=== PATIENT | male | born 1950 | race Caucasian/White ===

== ENCOUNTER → 2016-08-18 | Outpatient (CLI) | payer OTHER ==
[~2016-08-18] MED LIST: DULO60CA44 PO; HYDR-5688 PO; HYDR25TA4 PO; LISI40TA PO; LORA-741 PO; PANT40TA PO; RANI150T3 PO
[2016-08-18 18:09] LABS: ALT/SGPT 36 U/L (12-78); AST/SGOT 20 U/L (15-37); BLOOD UREA NITROGEN 18 mg/dl (7-18); BUN/CREATININE RATIO 16.7 (10-20); CALCIUM 8.5 mg/dl (8.5-10.1); CARBON DIOXIDE 31 mmol/L (21-32); CHLORIDE 99 mmol/L (98-107); GLUCOSE 128 mg/dl (70-99); POTASSIUM 3.7 mmol/L (3.5-5.1); SODIUM 138 mmol/L (136-145)
== END | disposition home or self-care (01) ==
LOC: C.LABMFLN 10:59
PROVIDERS: ATTEND Family Medicine
DX: I10 Essential (primary) hypertension (principal); E78.00 Pure hypercholesterolemia, unspecified; G62.9 Polyneuropathy, unspecified

== ENCOUNTER → 2016-08-25 | Outpatient (CLI) | payer OTHER ==
[2016-08-25 13:51] LABS: ESTIMATED AVERAGE GLUCOSE 120 mg/dl; HA1C FLAG Normal (Normal)
== END | disposition home or self-care (01) ==
LOC: C.LABMFLN 11:33
PROVIDERS: ATTEND Family Medicine
DX: R73.09 Other abnormal glucose (principal)

== ENCOUNTER → 2016-09-04 | Outpatient (CLI) | payer OTHER ==
[2016-09-04 18:16] LABS: BASO % 0.9 %; BASO ABS # 0.07 K/uL (0-0.2); COMPLETE YES; HEMATOCRIT 44.2 % (42-52); IG% 0.4 %; LYMPH % 46.3 %; LYMPH ABS # 3.63 K/uL (1.2-3.4); MEAN CELL VOLUME 92.5 fL (80-100); MEAN CORPUSCULAR HEMOGLOBIN 31.8 pg (25-34); MEAN CORPUSCULAR HGB CONC 34.4 g/dl (32-36); MEAN PLATELET VOLUME 9.9 fL (7.4-10.4); MONO % 7.8 %; NEUT % 42.6 %; PLATELET COUNT 226 K/uL (130-400); RED BLOOD COUNT 4.78 M/uL (4.7-6.1); WHITE BLOOD COUNT 7.84 K/uL (4.8-10.8)
== END | disposition home or self-care (01) ==
LOC: C.LABMFLN 14:51
PROVIDERS: ATTEND Family Medicine
DX: R06.09 Other forms of dyspnea (principal); R07.89 Other chest pain

== ENCOUNTER → 2016-09-21 | Outpatient (CLI) | payer OTHER ==
[~2016-09-21] MED LIST changes: +PERFLUTREN LIPID MICROSPHERE (DEFINITY) IV ONE
--- NOTE | 2016-09-21 10:58 | DIAGNOSTIC IMAGING REPORT ---
CHEST 2 VIEWS ROUTINE HISTORY: R06.09 Dyspnea on [id number] Chest [id number] COMPARISON: Chest 09/22/2014. FINDINGS: The lungs are clear. Cardiac silhouette is normal in size. No pleural effusions. No pneumothorax. Cervical spinal fusion hardware. IMPRESSION: No acute process. Electronically signed by: Calvin Alexander M.D. 09/21/2016 10:56 AM Dictated Date/Time: 09/21/2016 10:56 AM
--- NOTE | 2016-09-21 11:00 | DIAGNOSTIC IMAGING REPORT ---
L-SPINE MIN 4 VIEWS ROUTINE CLINICAL HISTORY: Chronic back pain COMPARISON STUDY: No previous studies for comparison. FINDINGS: No acute fractures or subluxations are visualized. There are moderately advanced degenerative changes with disc space narrowing at the L4-5 and L5-S1 levels. IMPRESSION: Moderately advanced degenerative changes the L4-5 and L5-S1 levels. No acute fractures are visualized. Electronically signed by: Chino Ortega M.D. 09/21/2016 10:59 AM Dictated Date/Time: 09/21/2016 10:58 AM
--- NOTE | 2016-09-21 11:47 | DIAGNOSTIC IMAGING REPORT ---
MRI THORACIC SPINE WITHOUT CLINICAL HISTORY: Chronic back pain PRIOR STUDIES: None TECHNIQUE: MR scanning of the thoracic spine was performed using multiple pulse sequences. No gadolinium was administered. FINDINGS: There are no suspicious areas of marrow replacement. There is a small right paracentral disc protrusion at the T5-6 level. There is no significant spinal stenosis. No cord lesions are visualized. IMPRESSION: 1. Small right paracentral disc protrusion at the T5-6 level 2. No significant spinal stenosis. 3. No cord lesions identified. 4. No evidence of suspicious marrow replacement Electronically signed by: Chino Ortega M.D. 09/21/2016 11:46 AM Dictated Date/Time: 09/21/2016 11:40 AM
--- NOTE | 2016-09-21 19:15 | EXERCISE STRESS ECHO ---
*NOTICE TO RECEIVING [employer] This information is strictly Confidential and protected under [place] law. [place] law prohibits you from making any further disclosure of this information unless further disclosure is expressly permitted by the written consent of the person to whom it pertains or is authorized by law. A general authorization for the release of medical or other information is not sufficient for this purpose. Hospital accepts no responsibility if the information is made available to any other person, INCLUDING THE PATIENT. Interpretation Summary * Name: DEBBIE BAINS Study Date: 09/21/2016 11:44 AM BP: 122/77 mmHg * Patient Location: .[facility] HR: 90 * : 1950 (M/d/yyyy) Gender: Male Height: 71 in * Age: 66 yrs Ethnicity: [place] Weight: 249 lb * Ordering Physician: Tommy Vizcarra * Referring Physician: Tommy Vizcarra * Performed By: Leti Worley RDCS * * Reason For Study: Chest discomfort, dyspnea * BSA: 2.3 m2 * -- Conclusions -- * Left ventricular systolic function is normal. * Grade I diastolic dysfunction, (abnormal relaxation pattern). * Normal maximal exercise echocardiogram without evidence of inducible ischemia Procedure Details * ECHOEX, CPT #54658 * ECHO DOPPLER, CPT #[id number] * ECHO COLOR FLOW, CPT #70308 * A contrast injection of Definity was performed to improve assessment of LV function. * Contrast was injected into an intravenous site in the right arm. * One vial of Definity ultrasound contrast was diluted in normal saline to a total volume of 10 ml. A total of '4' ml of solution was administered during imaging. * Lot # [id number] of Definity utilized for procedure. * Expiration date AUG 29. * The attending nurse who injected the contrast agent was Perla Gregory RN. Left Ventricle * The left ventricle is normal in size. * There is normal left ventricular wall thickness. * Ejection Fraction = 65-70%. * Left ventricular systolic function is normal. * Grade I diastolic dysfunction, (abnormal relaxation pattern). * The left ventricular wall motion is normal. Right Ventricle * The right ventricle is normal in size and function. Atria * The left atrial size is normal. * Right atrial size is normal. Mitral Valve * The mitral valve is grossly normal. * Significant mitral regurgitation is absent. Tricuspid Valve * The tricuspid valve is not well visualized, but is grossly normal. * Significant tricuspid regurgitation is absent. Aortic Valve * The aortic valve is normal in structure and function. * No hemodynamically significant valvular aortic stenosis. * There is no significant aortic regurgitation. Pericardium * There is no pericardial effusion. Stress Parameters * Normal baseline electrocardiogram. * Stress ECG: No ST changes. No arrhythmias. * The stress portion of this study was personally supervised by the undersigned interpreting physician. * Rest heart rate was '90' BPM. * Rest blood pressure was '122/77' * Maximum heart rate achieved was 173 bpm. * Maximum heart rate was 110 % of maximum age-predicted heart rate. * Maximum blood pressure was '160/74' * Total exercise time was '6:01' * Maximum exercise MET level achieved was '7.00' METS * Maximum treadmill speed was '2.50' miles per hour. * Maximum treadmill elevation was '12.00'% grade. * Exercise was terminated due to 'achieving target heart rate' Left Ventricular Findings with Stress * No ischemic changes during stress test. Normal baseline echo with normal augmentation and no inducible wall motion abnormalities No symptoms Light treadmill score 6 (low risk) MMode 2D Measurements and Calculations IVSd 1.1 cm LVIDd 4.2 cm LVIDs 2.7 cm LVPWd 1.3 cm IVS/LVPW 0.88 FS 35.4 % EDV(Teich) 76.6 ml ESV(Teich) 26.7 ml EF(Teich) 65.2 % EDV(cubed) 71.8 ml ESV(cubed) 19.4 ml EF(cubed) 73.0 % LV mass(C)d 171.2 grams LV mass(C)dI 73.9 grams/m\S\2 SV(Teich) 50.0 ml SI(Teich) 21.6 ml/m\S\2 SV(cubed) 52.4 ml SI(cubed) 22.6 ml/m\S\2 Ao root diam 3.8 cm Ao root area 11.1 cm\S\2 ACS 2.2 cm LA dimension 3.0 cm asc Aorta Diam 3.2 cm LA/Ao 0.81 LVOT diam 2.2 cm LVOT area 3.8 cm\S\2 LVAd ap4 28.7 cm\S\2 LVLd ap4 8.7 cm EDV(MOD-sp4) 80.9 ml EDV(sp4-el) 80.5 ml LVAs ap4 14.5 cm\S\2 LVLs ap4 6.6 cm ESV(MOD-sp4) 26.6 ml ESV(sp4-el) 27.0 ml EF(MOD-sp4) 67.1 % EF(sp4-el) 66.4 % LVAd ap2 27.4 cm\S\2 LVLd ap2 8.3 cm EDV(MOD-sp2) 75.0 ml EDV(sp2-el) 76.9 ml LVAs ap2 14.4 cm\S\2 LVLs ap2 7.1 cm ESV(MOD-sp2) 27.0 ml ESV(sp2-el) 24.8 ml EF(MOD-sp2) 64.0 % EF(sp2-el) 67.7 % LVLd %diff -5.38 % EDV(MOD-bp) 79.9 ml LVLs %diff 7.1 % ESV(MOD-bp) 25.7 ml EF(MOD-bp) 67.8 % SV(MOD-sp4) 54.3 ml SI(MOD-sp4) 23.5 ml/m\S\2 SV(MOD-sp2) 48.0 ml SI(MOD-sp2) 20.7 ml/m\S\2 SV(MOD-bp) 54.2 ml SI(MOD-bp) 23.4 ml/m\S\2 SV(sp4-el) 53.5 ml SI(sp4-el) 23.1 ml/m\S\2 SV(sp2-el) 52.1 ml SI(sp2-el) 22.5 ml/m\S\2 Doppler Measurements and Calculations MV E max wade 82.0 cm/sec MV A max wade 86.3 cm/sec MV E/A 0.95 MV dec time 0.22 sec Ao V2 max 153.4 cm/sec Ao max PG 9.4 mmHg Ao max PG (full) 5.6 mmHg AASHISH(V,A) 2.4 cm\S\2 AASHISH(V,D) 2.4 cm\S\2 LV V1 max PG 3.8 mmHg LV V1 max 97.9 cm/sec PA V2 max 127.6 cm/sec PA max PG 6.5 mmHg PA acc slope 1197.9 cm/sec\S\2 PA acc time 0.08 sec PA pr(Accel) 42.6 mmHg
== END | disposition home or self-care (01) ==
LOC: C.MRI 10:27
PROVIDERS: ATTEND Family Medicine
DX: R07.89 Other chest pain (principal); R06.09 Other forms of dyspnea; M54.9 Dorsalgia, unspecified

== ENCOUNTER → 2016-10-04 | Outpatient (CLI) | payer OTHER ==
[~2016-10-04] MED LIST changes: -PERFLUTREN LIPID MICROSPHERE (DEFINITY) IV ONE
--- NOTE | 2016-10-04 11:13 | DIAGNOSTIC IMAGING REPORT ---
LUMBAR SPINE MRI HISTORY: Back pain M54.9 Back pain, [id number] Lumbosacral radiculopathy at L4MR TECHNIQUE: Multiplanar multisequence MRI of the lumbar spine was performed without the use of contrast. COMPARISON: None. FINDINGS: For the purpose of the report the L5-S1 disc space will be located on axial image 27 of 30. Considerable degenerative disc changes throughout. Mild bone marrow signal heterogeneity considered to be age-related. L1-L2: No significant central canal or neural foraminal narrowing. L2-L3: Slight broad-based disc bulge. Minimal impact with anterior thecal sac. L3-L4: Mild broad-based disc bulge. Minimal impact anterior thecal sac. Minimal narrowing neuroforamina bilaterally. L4-L5: Broad-based disc herniation considered mild. Mild posterior osteophytic reaction. Minimal impact anterior thecal sac. Moderate narrowing of the neuroforamina bilaterally. L5-S1: Mild central bulging disc. Minimal narrowing of the neuroforamina bilaterally. IMPRESSION: 1. Considerable degenerative disc change at the entire lumbar region. 2. Multilevel bulging discs and posterior osteophytic reaction primarily from L3 through S1. 3. No major compromise of the spinal canal or neural foramina. Electronically signed by: Kishore Reyes M.D. 10/04/2016 11:12 AM Dictated Date/Time: 10/04/2016 11:04 AM
== END | disposition home or self-care (01) ==
LOC: C.MRI 10:18
PROVIDERS: ATTEND Family Medicine
DX: M54.17 Radiculopathy, lumbosacral region (principal); M51.36 Other intervertebral disc degeneration, lumbar region; M51.26 Other intervertebral disc displacement, lumbar region; M51.27 Other intervertebral disc displacement, lumbosacral region

== ENCOUNTER 2016-12-13 08:02 | Inpatient (IN) | payer OTHER ==
[2016-11-27 14:33] VITALS: BMI 32.0
--- NOTE | 2016-11-27 15:05 | PAT Medication Instructions ---
Service Date Nov 27, 2016. Current Home Medication List Duloxetine Hcl (Cymbalta), 60 MG PO QAM Hydrochlorothiazide (Hctz), 25 MG PO QAM Lisinopril (Zestril), 40 MG PO BID Lorazepam (Ativan), 0.5 MG PO QAM Pantoprazole (Protonix), 40 MG PO BID Medication Instructions For Your Scheduled Surgery - Hold the following medications 24 hours prior to surgery: Lisinopril (Zestril), 40 MG PO BID - Hold the following medications the morning of surgery: Hydrochlorothiazide (Hctz), 25 MG PO QAM - Take the following medications the morning of surgery with a sip of water OTHERWISE NOTHING TO EAT OR DRINK AFTER MIDNIGHT: Pantoprazole (Protonix), 40 MG PO BID Duloxetine Hcl (Cymbalta), 60 MG PO QAM Lorazepam (Ativan), 0.5 MG PO QAM - Take the following medications as scheduled the night before surgery: Pantoprazole (Protonix), 40 MG PO BID If you have any questions please call us at [phone] or [phone] or [phone]
--- NOTE | 2016-11-27 15:47 | DIAGNOSTIC IMAGING REPORT ---
CHEST PREADMISSION(PA/LAT) CLINICAL HISTORY: PAT preoperative evaluation COMPARISON STUDY: 09/21/2016 FINDINGS: The bones soft tissues and hemidiaphragms are normal. The cardiomediastinal silhouette is normal. The lungs are clear. The pulmonary vasculature is normal. IMPRESSION: Negative chest. The above report was generated using voice recognition software. It may contain grammatical, syntax or spelling errors. Electronically signed by: Kishore Reyes M.D. 11/27/2016 3:46 PM Dictated Date/Time: 11/27/2016 3:46 PM
[2016-11-27 16:07] LABS: BASO % 0.6 %; BASO ABS # 0.04 K/uL (0-0.2); COMPLETE YES; EOS % 4.1 %; HEMATOCRIT 42.2 % (42-52); IG% 0.3 %; LYMPH % 43.7 %; MEAN CELL VOLUME 90.8 fL (80-100); MEAN CORPUSCULAR HGB CONC 34.1 g/dl (32-36); MEAN PLATELET VOLUME 9.2 fL (7.4-10.4); MONO % 8.3 %; PLATELET COUNT 209 K/uL (130-400); RED BLOOD COUNT 4.65 M/uL (4.7-6.1); WHITE BLOOD COUNT 6.86 K/uL (4.8-10.8)
[2016-11-27 16:14] LABS: BUN/CREATININE RATIO 17.7 (10-20); CALCIUM 8.5 mg/dl (8.5-10.1); CREATININE 1.1 mg/dl (0.60-1.40); POTASSIUM 3.9 mmol/L (3.5-5.1)
[2016-11-27 16:36] LABS: URINE APPEARANCE CLEAR (CLEAR); URINE BILIRUBIN NEG (NEG); URINE COLOR YELLOW; URINE NITRITE NEG (NEG); URINE PH 5.5 (4.5-7.5); URINE SPECIFIC GRAVITY 1.017 (1.000-1.030); UROBILINOGEN NEG (NEG)
[2016-11-27 16:56] LABS: MANUAL MICROSCOPIC REQUIRED? NO; REVIEW REQ? NO
[2016-12-13] VITALS (8 sets, daily range): BP systolic 120–174; BP diastolic 69–99; PULSE 65–82; TEMP 35.8–36.4; O2SAT 93–98; Ht 180.3 cm; Wt 108.5 kg
[~2016-12-13] VITALS: Ht 180.3 cm; Wt 108.5 kg
[~2016-12-13 08:02] MED LIST changes: +CEFAZOLIN 2000 MG/60 ML D5W IV SCH; -HYDR-5688 PO; +LACTATED RINGER'S 1000ML 1,000 ML IV SCH; -RANI150T3 PO
[2016-12-13] MEDS ORDERED: FENTANYL CITRATE INJ 50 MCG/1 ML 2 ML VIAL ONE ×3 (09:02→12:23)
[2016-12-13] MEDS ORDERED: MIDAZOLAM HCL 1 MG/ML 2ML VIAL ONE (09:02)
--- NOTE | 2016-12-13 09:07 | History & Physical Bridge Note ---
H&P Re-Evaluation Bridge Note: I have examined the patient, reviewed the History & Physical and in the interval since the performance of the History & Physical I have noted the following changes of clinical significance: No changes noted
--- NOTE | 2016-12-13 09:08 | History and Physical ---
History & Physical Date Dec 13, 2016. Chief Complaint Back and leg pain History of Present Illness The patient is a 66 year old male with complaints of back and leg pain Additional History Hepatic Disease: No Endocrine Disorder: No Kidney Disease: No Hypertension: Yes Heart Disease: No Bleeding Tendencies: No Infectious Diseases: No Allergies Coded Allergies: Oxycodone (Verified Allergy, Unknown, Dilusions, 12/13/16) Reported by PT Venlafaxine (Unverified Allergy, Unknown, MADE JITTERY, 12/13/16) Home Medications Scheduled Duloxetine Hcl (Cymbalta), 60 MG PO QAM Hydrochlorothiazide (Hctz), 25 MG PO QAM Lisinopril (Zestril), 40 MG PO BID Lorazepam (Ativan), 0.5 MG PO QAM Pantoprazole (Protonix), 40 MG PO BID Physical Examination Skin: warm/dry, no rash Eyes: normal inspection, EOMI, sclerae normal ENT: normal ENT inspection, pharynx normal Head: normocephalic, atraumatic Neck: supple, no adenopathy, trachea midline Respiratory/Chest: lungs clear, normal breath sounds, no respiratory distress Cardiovascular: regular rate, rhythm, no edema, no murmur Abdomen / GI: normal bowel sounds, non tender Back: normal inspection Extremities: normal inspection, normal range of motion Neurologic/Psych: no motor/sensory deficits, alert, normal reflexes, oriented x 3 Diagnosis Lumbar spinal stenosis Plan of Treatment Lumbar decompression fusion L4 5 L5-S1
[2016-12-13] MEDS ORDERED: FENTANYL CITRATE INJ 50 MCG/1 ML 2 ML VIAL IV PRN (09:15)
[2016-12-13] MEDS ORDERED: HYDROmorphone INJ 1 MG/ML SYR IV PRN (09:15)
[2016-12-13] MEDS ORDERED: ONDANSETRON INJ 2 MG/ML 2 ML VIAL IV PRN ×2 (09:15→12:30)
[2016-12-13] MEDS ORDERED: ATROPINE SULFATE 0.1 MG/ML 5ML SYR IV PRN (09:15)
[2016-12-13] MEDS ORDERED: EpHEDrine SULFATE INJ 50 MG/ML AMP IV PRN (09:15)
[2016-12-13] MEDS ORDERED: BUPIVACAINE/EPINEPHRINE 0.5% MPF 1:200,000 10 ML VIAL ONE (09:24)
[2016-12-13] MEDS ORDERED: SODIUM CHLORIDE 0.9% PF 50 ML VIAL ONE (09:25)
[2016-12-13] MEDS ORDERED: BACITRACIN 50000 UNIT VIAL ONE (09:25)
[2016-12-13] MEDS ORDERED: HYDROmorphone INJ 2 MG/ML SYR/VIAL ONE ×2 (10:10→12:25)
[2016-12-13] MEDS ORDERED: FLOSEAL HEMOSTATIC MATRIX 10ML TOP ONE ×2 (12:15→12:20)
[2016-12-13] MEDS ORDERED: SODIUM CHLORIDE 0.9% 1000ML 1,000 ML IV SCH (12:22)
[2016-12-13] MEDS ORDERED: ONDANSETRON INJ 2 MG/ML 2 ML VIAL ONE (12:28)
[2016-12-13] MEDS ORDERED: KETOROLAC TROMETHAMINE 30 MG/ML VIAL ONE (12:28)
[2016-12-13] MEDS ORDERED: PROPOFOL IV EMULSION 10 MG/ML 20 ML VIAL IV ONE (12:28)
[2016-12-13] MEDS ORDERED: ROCURONIUM BROMIDE 10 MG/ML 5 ML VIAL ONE (12:28)
[2016-12-13] MEDS ORDERED: DEXAMETHASONE SOD INJ 4 MG/ML VIAL ONE (12:28)
[2016-12-13] MEDS ORDERED: NEOSTIGMINE METHYLSULFATE 1 MG/ML 10ML VIAL ONE (12:28)
[2016-12-13] MEDS ORDERED: GLYCOPYRROLATE INJ 0.2 MG/ML VIAL ONE (12:28)
[2016-12-13] MEDS ORDERED: LIDOCAINE HCL 2% 2 ML VIAL (20MG/ML) ONE (12:28)
[2016-12-13] MEDS ORDERED: PROMETHAZINE HCL INJ 12.5 MG in SODIUM CHLORIDE 0.9% 50ML 50 ML IV PRN (12:30)
[2016-12-13] MEDS ORDERED: MAGNESIUM HYDROXIDE SUSP 30 ML UDC PO PRN (12:30)
[2016-12-13] MEDS ORDERED: METOCLOPRAMIDE HCL INJ 5 MG/ML 2 ML VIAL IV PRN (12:30)
[2016-12-13] MEDS ORDERED: DO NOT ADMINISTER PNEUMOCOCCAL VACCINE PRN ×2 (12:30)
[2016-12-13] MEDS ORDERED: ACETAMINOPHEN IV 100 ML IV PRN (12:30)
[2016-12-13] MEDS ORDERED: BISACODYL 10 MG SUPP PR PRN (12:30)
[2016-12-13] MEDS ORDERED: DO NOT ADMINISTER FLU VACCINE PRN ×3 (12:30)
[2016-12-13] MEDS ORDERED: FAMOTIDINE 20 MG TAB PO PRN (12:30)
[2016-12-13] MEDS ORDERED: NALOXONE HCL 0.4 MG/1 ML VIAL/CARP IV PRN (12:30)
[2016-12-13] MEDS ORDERED: hydrOXYzine HCL 25 MG TAB PO PRN (12:30)
[2016-12-13] MEDS ORDERED: ALUMINUM/MAGNESIUM SUSP 30 ML UDC PO PRN (12:30)
[2016-12-13] MEDS ORDERED: LORAZEPAM INJ 0.5 MG in SYRINGE 0 ML IV PRN (12:30)
[2016-12-13] MEDS ORDERED: ACETAMINOPHEN 500 MG TAB PO PRN (12:30)
[2016-12-13] MEDS ORDERED: SOD PHOSPHATE/SOD BIPHOSPHATE ENEMA 132 ML BTL PR PRN (12:30)
--- NOTE | 2016-12-13 12:30 | [facility] Operative Report ---
Operative Report Operative Date Dec 13, 2016. Pre-Operative Diagnosis Lumbar Stenosis Post-Operative Diagnosis same Procedure(s) Performed #1 revision decompression medial facetectomies foraminotomies L3 4 L4 5 L5-S1. #2 posterior spinal fusion L4 5 L5-S1. #3 patient of posterior segmental instrumentation L4 5 L5-S1. #4 interbody fusion L4 5 L5-S1. #5 placement peek cage 9 x 26 mm at L4 5 L5-S1. #6 placement of locally harvested morcellized autograft and posterior gutters. #7 placement infuse collagen sponge about mask graft in the posterior lateral gutters in DBM in the interbody space. Surgeon Dr. Duane Pearson [employer] Equipment Mechanic Surgeon(s) Deborah Heranndez PA-C Estimated Blood Loss 550ML Findings Severe spinal stenosis Specimens none per surgeon Description of Procedure Patient was met with preoperatively case discussed all questions are dressed with a point patient was taken back to the operative suite and after undergoing successful intubation placed in a prone position on the Slim table top Rajeev frame. All bony promises well-padded eyes inspected to ensure no external pressure. Lumbar spine is prepped and draped in normal sterile fashion. Sharp dissection with the assistance of Bovie cautery was performed onto an exposing the remaining lamina and transverse processes of L4 L5 and the sacral alar bilaterally. Revision complete laminectomy L5L4 and partial laminectomy of L3 performed addressing severe lateral recessed foraminal disease. Pedicle screws were then placed in L4 5 S1 levels bilaterally with the assistance of fluoroscopy in the purposes carolyn placed. Through a transforaminal approach on the right a complete discectomy of L5 S1 was performed and an plates curetted to subcortical bleeding bone and a 9 x 26 mm cage filled with DBM tapped in position. I then proceeded L4 5. Again through a transforaminal approach on the right a complete discectomy was performed and plate created to subcortical bleeding bone and a 9 x 26 mm peek cage filled with DBM tapped in position. Brought in and locked and final position bilaterally. Transverse processes of L4-L5 and the sacral alar burred to subcortical bleeding bone infuse collagen sponge mask graft locally harvested morcellized autograft was placed in the posterior lateral gutters 15 round EVELIO drain inserted. Incision was then closed with 1 Vicryl in the fascia 2-0 Vicryl subcutaneously for Monocryl for final skin closure Steri-Strip sterile dressing placed between the PACU stable condition. Please note Deborah Montoya was present throughout the entire procedure involved in patient positioning complex portions of the procedure and final skin closure. I attest to the content of the Intraoperative Record and any orders documented therein. Any exceptions are noted below.
[2016-12-13] MEDS ORDERED: HYDROmorphone HCL 0.5MG/ML 50 ML CASSETTE ONE (12:57)
--- NOTE | 2016-12-13 12:58 | DIAGNOSTIC IMAGING REPORT ---
LUMBAR SPINE 2 OR 3 VIEW CLINICAL HISTORY: 66 years-old Male presenting with L4-S1 DECOMPRESSION/FUSION/INTERBODY. TECHNIQUE: 2 fluoroscopic spot image(s) obtained as part of intraoperative procedure. COMPARISON: 09/21/2016. FINDINGS/IMPRESSION: Frontal and lateral views of the lumbar spine demonstrate interval bilateral transpedicular screw and fixation of L4-S1 with interbody spacers at L4-5 and L5-S1. Anatomic alignment preserved. Please see surgical report for further details. Fluoroscopy dosage (mGy): Not available. Fluoroscopy time: 22 seconds. Number of fluoroscopic spot images: 2. Electronically signed by: Jessee Russell M.D. 12/13/2016 12:56 PM Dictated Date/Time: 12/13/2016 12:55 PM
--- NOTE | 2016-12-13 13:37 | Anesthesiology Progress Note ---
Anesthesia Post Op Note Date & Time Dec 13, 2016 at 13:37 Vital Signs Pain Intensity: 0 Vital Signs Past 12 Hours Date Time Temp Pulse Resp B/P (MAP) Pulse Ox O2 Delivery O2 Flow Rate FiO2 12/13/16 13:25 36.3 88 14 154/85 95 Nasal Cannula 3 12/13/16 13:15 90 14 155/83 97 Oxymask 10 12/13/16 13:05 92 14 164/86 98 Oxymask 10 12/13/16 12:55 93 14 148/78 96 Oxymask 10 12/13/16 12:47 36.8 84 14 140/76 93 Oxymask 10 12/13/16 08:25 36.3 70 20 174/99 98 Room Air Notes Mental Status: alert / awake / arousable, participated in evaluation Pt Amnestic to Procedure: Yes Nausea / Vomiting: adequately controlled Pain: adequately controlled Airway Patency, RR, SpO2: stable & adequate BP & HR: stable & adequate Hydration State: stable & adequate Anesthetic Complications: no major complications apparent
[2016-12-13] MEDS: DC PCA SCH (14:14)
[2016-12-13] MEDS: LACTATED RINGER'S 1000ML 1,000 ML IV SCH ×2 (14:46→19:24)
[2016-12-13] MEDS: HYDROmorphone HCL 0.5MG/ML 50 ML CASSETTE IV PRN ×2 (15:02→22:56)
[2016-12-13] MEDS: CEFAZOLIN IV 2,000 MG in DEXTROSE 5% 50ML 50 ML IV SCH (17:38)
[2016-12-13] MEDS: DEXAMETHASONE INJ 6 MG in SYRINGE 0 ML IV SCH (17:38)
[2016-12-13] MEDS: LISINOPRIL 40 MG TAB PO SCH (20:50)
[2016-12-13] MEDS: PANTOprazole SOD 40 MG TAB PO SCH (20:50)
[2016-12-13] MEDS: DOCUSATE SODIUM/SENNA 50/8.6MG TAB PO SCH (20:50)
[2016-12-13 23:11] LABS: URINE APPEARANCE CLEAR (CLEAR); URINE BILIRUBIN NEG (NEG); URINE COLOR YELLOW; URINE EPITHELIAL CELL AUTO 20-30 /lpf (0-5); URINE NITRITE NEG (NEG); URINE PH 5.5 (4.5-7.5); URINE SPECIFIC GRAVITY 1.039 (1.000-1.030); UROBILINOGEN NEG (NEG)
[2016-12-13 23:13] LABS: MANUAL MICROSCOPIC REQUIRED? NO; REVIEW REQ? NO
[2016-12-14] MEDS: LACTATED RINGER'S 1000ML 1,000 ML IV SCH (01:38)
[2016-12-14] MEDS: CEFAZOLIN IV 2,000 MG in DEXTROSE 5% 50ML 50 ML IV SCH (01:40)
[2016-12-14] MEDS: DEXAMETHASONE INJ 6 MG in SYRINGE 0 ML IV SCH ×2 (01:44→10:21)
[2016-12-14 03:26] VITALS: BP 123/67; PULSE 71; TEMP 36.6; O2SAT 92
[2016-12-14] MEDS: DC PCA SCH (05:59)
[2016-12-14] MEDS ORDERED: NALOXONE HCL 0.4 MG/1 ML VIAL/CARP IV PRN (06:00)
[2016-12-14] MEDS ORDERED: HYDROCODONE/ACETAMOPHEN 5/325MG TAB PO PRN (06:00)
[2016-12-14] MEDS ORDERED: HYDROmorphone INJ 0.5 MG/0.5 ML SYR IV PRN (06:00)
[2016-12-14] MEDS ORDERED: HYDROmorphone INJ 1 MG/ML SYR IV PRN (06:00)
[2016-12-14 06:17] LABS: BASO % 0.1 %; BASO ABS # 0.01 K/uL (0-0.2); COMPLETE YES; EOS % 0.1 %; HEMATOCRIT 37.2 % (42-52); IG% 0.3 %; LYMPH % 5.9 %; LYMPH ABS # 0.52 K/uL (1.2-3.4); MEAN CELL VOLUME 92.8 fL (80-100); MEAN CORPUSCULAR HEMOGLOBIN 30.9 pg (25-34); MEAN CORPUSCULAR HGB CONC 33.3 g/dl (32-36); MEAN PLATELET VOLUME 9.3 fL (7.4-10.4); NEUT % 90.6 %; PLATELET COUNT 192 K/uL (130-400); RED BLOOD COUNT 4.01 M/uL (4.7-6.1); WHITE BLOOD COUNT 8.77 K/uL (4.8-10.8)
[2016-12-14] MEDS ORDERED: NURSING DECISION MEDICATION ORDER SCH (06:45)
[2016-12-14 06:48] LABS: BUN/CREATININE RATIO 17.4 (10-20); CALCIUM 7.9 mg/dl (8.5-10.1); POTASSIUM 4.1 mmol/L (3.5-5.1)
[2016-12-14] MEDS: HYDROCODONE/ACETAMOPHEN 5/325MG TAB PO PRN ×3 (07:48→19:12)
[2016-12-14 07:53] VITALS: BP 131/78; PULSE 86; TEMP 36.5; O2SAT 92
--- NOTE | 2016-12-14 08:30 | Progress Note ---
Progress Note Date of Service Dec 14, 2016. Progress Note Patient doing well overall. Leg pain improved. On exam vital signs are stable EVELIO drain decreasing appropriate. Excellent strength testing. Assessment status post lumbar depression fusion replant this time initiate physical therapy advance his bowel regimen anticipate home Sunday or Sunday.
--- NOTE | 2016-12-14 08:30 | Anesthesiology Progress Note ---
Anesthesia Post Op Note Date & Time Dec 14, 2016 at 08:29 Vital Signs Pain Intensity: 3 Vital Signs Past 12 Hours Date Time Temp Pulse Resp B/P (MAP) Pulse Ox O2 Delivery O2 Flow Rate FiO2 12/14/16 07:53 36.5 86 16 131/78 (95) 92 Room Air 12/14/16 03:26 36.6 71 18 123/67 (85) 92 Room Air 12/13/16 23:45 Room Air 12/13/16 22:54 36.4 77 18 120/69 (86) 93 Room Air Notes Mental Status: alert / awake / arousable Pt Amnestic to Procedure: Yes Nausea / Vomiting: adequately controlled Pain: adequately controlled Airway Patency, RR, SpO2: stable & adequate BP & HR: stable & adequate Hydration State: stable & adequate pt has had 140 cc drain from EVELIO since last night at 11p
[2016-12-14 08:52] VITALS: O2SAT 92
[2016-12-14] MEDS: LORAZEPAM 0.5 MG TAB PO PRN (09:06)
[2016-12-14] MEDS: PANTOprazole SOD 40 MG TAB PO SCH ×2 (09:07→21:04)
[2016-12-14] MEDS: LISINOPRIL 40 MG TAB PO SCH ×2 (09:08→21:04)
[2016-12-14] MEDS: DULOXETINE HCL 60 MG CAP PO SCH (09:08)
[2016-12-14] MEDS: HYDROCHLOROTHIAZIDE 25 MG TAB PO SCH (09:09)
[2016-12-14 11:45] VITALS: BP 122/66; PULSE 76; TEMP 36.6; O2SAT 96
[2016-12-14] MEDS: KETOROLAC TROMETHAMINE 30 MG/ML VIAL IV PRN ×2 (11:58→21:08)
[2016-12-14 16:00] VITALS: BP 113/63; PULSE 68; TEMP 36.6; O2SAT 99
[2016-12-14] MEDS: DOCUSATE SODIUM/SENNA 50/8.6MG TAB PO SCH (21:04)
[2016-12-15 00:25] VITALS: BP 142/80; PULSE 66; TEMP 36.4; O2SAT 97
[2016-12-15] MEDS: POLYETHYLENE (MIRALAX) 17 GM PACK PO SCH ×2 (05:53→12:00)
[2016-12-15 05:54] VITALS: BP 134/72; PULSE 83; TEMP 36.5; O2SAT 98
[2016-12-15] MEDS: LORAZEPAM 0.5 MG TAB PO PRN (07:35)
[2016-12-15] MEDS: HYDROCHLOROTHIAZIDE 25 MG TAB PO SCH (07:36)
[2016-12-15] MEDS: HYDROCODONE/ACETAMOPHEN 5/325MG TAB PO PRN ×2 (07:36→15:37)
[2016-12-15] MEDS: PANTOprazole SOD 40 MG TAB PO SCH (07:36)
[2016-12-15] MEDS: LISINOPRIL 40 MG TAB PO SCH (07:36)
[2016-12-15] MEDS: DULOXETINE HCL 60 MG CAP PO SCH (07:36)
[2016-12-15] MEDS ORDERED: HYDR-5688 PO (07:47)
--- NOTE | 2016-12-15 07:48 | Discharge Instructions ---
Discharge Instructions Date of Service Dec 15, 2016. Admission Reason for Admission: Lumbar Spinal Stenosis Discharge Discharge Diagnosis / Problem: lumbar stenosis Discharge Goals Goal(s): Improve function Activity Recommendations Activity Limitations: per Instructions/Follow-up section . Instructions / Follow-Up Instructions / Follow-Up ACTIVITY RECOMMENDATIONS: SELF CARE INSTRUCTIONS AFTER THORACIC/LUMBAR FUSIONS 1. You may walk to your tolerance. It is good exercise for your legs and back. Expect some back and intermittent leg aches and pains. 2. You may perform "counter-top" level activities (make a sandwich, ilsa with a project, etc.). 3. No bending or lifting of more than 10 pounds or back twisting of any nature (roll like a log when turning in bed). 4. You may ride in a car for 20-30 minutes at a time. No driving until after your first visit with your doctor. 5. Frequent changes of position and restricting sitting to 30 minutes at a time will help limit the amount of back spasms and stiffness you may experience. 6. You may discontinue the use of ambulatory aids (cane, crutches, etc.) once your strength and confidence allow. 7. You may tin flipper the shower and let water strike your incision when you arrive home at least once daily. Do not take a tub bath, sit in a hot tub or go into a swimming pool until after your first recheck in the office. SPECIAL CARE INSTRUCTIONS: VERY IMPORTANT TO READ AND REVIEW A. Your surgical incision has been closed with a cosmetic suture under the skin that will dissolve in about 6 weeks. In 14 days, you can use a pair of clean scissors and cut the suture that is left outside of the skin at the ends of your incision. 1. The small skin tapes can be removed 7 days after surgery if they have not fallen off by that point. 2. You may keep the wound open to air as much as possible to promote healing after post-op day number 5 unless told otherwise by your doctor. 3. If you think the wound looks like it is becoming infected (redness or worsening drainage) and/or you are experiencing fever, chill or worsening back pain and muscle spasms, contact the office so that we may evaluate you as soon as possible. B. Complications are uncommon, but please contact us if you have any signs or symptoms of: 1. wound infection (fever higher than 102.5 degrees F, redness, separation of wound, drainage, or increasing pain from the incision) 2. blood clots in legs (pain, swelling, redness and warmth in legs) 3. urinary tract infection (fever higher than 102.5 degrees F, burning upon urination or increased frequency of urination) 4. nerve problems (inability to walk on your toes or heels, numbness, loss of bowel or bladder control) 5. any other symptoms that concern you C. Please call the office at if you have any concerns or questions about your operation or recovery. D. No smoking! Smoking drastically decreases the chance of a solid fusion. E. Do not take any anti-inflammatory medications (Indocin, Advil, Motrin, Aspirin, Naprosyn, etc.) as these may inhibit the chance of a solid fusion. Tylenol is okay to take for pain. MANAGING PAIN AFTER SPINAL SURGERY 1. Narcotic medication is intended for short-term use and will be provided for surgical pain. Surgical pain usually lasts for a period of 4-6 weeks. Narcotic medication includes Percocet, Vicodin, Darvocet, Tylenol #3 or Lortab. 2. Longer-term pain is more appropriately treated with non-narcotic medication such as Tylenol ES. 3. Muscle spasm is not appropriately treated with narcotics. Muscle relaxers such as Soma, Flexeril or Skelaxin can be used along with Tylenol ES. 4. Remember that we all live with some "aches and pains". This is not unusual or uncommon after an injury or as we get older. a. Back pain is expected and may include muscle spasms for 4 to 6 weeks after surgery. The pain should gradually improve. If the pain worsens for no apparent reason, please contact the office. b. Intermittent leg pain may also be experienced and should not be concerned about unless it worsens for no apparent reason. If so, please contact the office. 5. We will provide appropriate medication within the normal guidelines of their prescribed use. We will also be very cautious and aware of potential abuse and extended duration of patients' medication needs. a. Pain medications are for your comfort and to assist with sleep and rest so that the tissue can heal. They are not provided in order to return to normal activity and should not be used through the day. To do so or worsening pain at night can result from ongoing tissue damage and development of tolerance to the prescribed medicine. 6. Please allow 2-3 days to process refills. Prescriptions will not be mailed but must be picked up at the office. FOLLOW UP VISIT: Keep your scheduled follow-up appointment. Any questions, please call the office at . Current Hospital Diet Patient's current hospital diet: Regular Diet Discharge Diet Recommended Diet: Regular Diet Procedures Procedures Performed: #1 revision decompression medial facetectomies foraminotomies L3 4 L4 5 L5-S1. #2 posterior spinal fusion L4 5 L5-S1. #3 patient of posterior segmental instrumentation L4 5 L5-S1. #4 interbody fusion L4 5 L5-S1. #5 placement peek cage 9 x 26 mm at L4 5 L5-S1. #6 placement of locally harvested morcellized autograft and posterior gutters. #7 placement infuse collagen sponge about mask graft in the posterior lateral gutters in DBM in the interbody space. Pending Studies Studies pending at discharge: no Medical Emergencies . Who to Call and When: Medical Emergencies: If at any time you feel your situation is an emergency, please call 911 immediately. . Non-Emergent Contact Non-Emergency issues call your: Primary Care Provider . "Provider Documentation" section prepared by Duane Pearson. . VTE Core Measure Inpt VTE Proph given/why not?: Supriya Manley, SCD's
[2016-12-15 10:36] VITALS: BP 134/72; PULSE 83; TEMP 36.5; O2SAT 98
--- NOTE | 2016-12-15 14:35 | Discharge Summary ---
Orthopedic Discharge Summary Admission Date/Reason Dec 13, 2016 at 09:00 Lumbar Spinal Stenosis. Discharge Date/Disposition Dec 15, 2016 Home Diagnosis Principal Diagnosis: Lumbar spinal stenosis Admission Physical Exam As per Admitting History & Physical. Hospital Course Patient underwent lumbar decompression fusion tolerated this well was taken to the orthopedic floor postoperatively. Postoperative day #1 is up in amatory symptoms improved. Postoperative day #2 he continued progressed nicely pain well controlled subsequently discharged home. Discharge orders and instructions can be found on the chart for further review. Discharge Instructions Please refer to the electronic Patient Visit Report (Discharge Instructions) for additional information.
[2016-12-15 15:25] VITALS: BP 131/67; PULSE 74; TEMP 36.7; O2SAT 98
== END 2016-12-15 16:17 | disposition home or self-care (01) | DRG 460 ==
LOC: C.ACU 08:02 → UNDOADMIN 09:00 → C.3E 09:00 → ENRESERV 13:18
PROVIDERS: ADMIT Orthopaedic Surgery Orthopaedic Surgery of the Spine; ATTEND Orthopaedic Surgery Orthopaedic Surgery of the Spine
PROC: 3E0U0GB Introduction of Recombinant Bone Morphogenetic Protein into Joints, Open Approach (ICD-10-PCS; principal; 2016-12-13 10:15)
PROC: 0SG00AJ Fusion of Lumbar Vertebral Joint with Interbody Fusion Device, Posterior Approach, Anterior Column, Open Approach (ICD-10-PCS; principal; 2016-12-13 10:15)
PROC: 0SG0071 Fusion of Lumbar Vertebral Joint with Autologous Tissue Substitute, Posterior Approach, Posterior Column, Open Approach (ICD-10-PCS; principal; 2016-12-13 10:15)
PROC: 0ST40ZZ Resection of Lumbosacral Disc, Open Approach (ICD-10-PCS; principal; 2016-12-13 10:15)
PROC: 0SG3071 Fusion of Lumbosacral Joint with Autologous Tissue Substitute, Posterior Approach, Posterior Column, Open Approach (ICD-10-PCS; principal; 2016-12-13 10:15)
PROC: 0SG30AJ Fusion of Lumbosacral Joint with Interbody Fusion Device, Posterior Approach, Anterior Column, Open Approach (ICD-10-PCS; principal; 2016-12-13 10:15)
PROC: 0ST20ZZ Resection of Lumbar Vertebral Disc, Open Approach (ICD-10-PCS; principal; 2016-12-13 10:15)
PROC: 01NB0ZZ Release Lumbar Nerve, Open Approach (ICD-10-PCS; principal; 2016-12-13 10:15)
DX: M48.06 Spinal stenosis, lumbar region (principal); I10 Essential (primary) hypertension; F41.9 Anxiety disorder, unspecified; F32.9 Major depressive disorder, single episode, unspecified; N40.0 Benign prostatic hyperplasia without lower urinary tract symptoms; E66.9 Obesity, unspecified; Z68.32 Body mass index [BMI] 32.0-32.9, adult; Z86.19 Personal history of other infectious and parasitic diseases; Z79.899 Other long term (current) drug therapy

== ENCOUNTER → 2017-01-17 | Outpatient (CLI) | payer OTHER ==
[~2017-01-17] MED LIST changes: -CEFAZOLIN 2000 MG/60 ML D5W IV SCH; +HYDR-5688 PO; -LACTATED RINGER'S 1000ML 1,000 ML IV SCH
[2017-01-17 13:50] LABS: ESTIMATED AVERAGE GLUCOSE 105 mg/dl; HA1C FLAG Normal (Normal)
[2017-01-17 14:19] LABS: ALB/GLOB RATIO 0.9 (0.9-2); ALKALINE PHOSPHATASE 134 U/L (45-117); ALT/SGPT 22 U/L (12-78); AST/SGOT 18 U/L (15-37); BLOOD UREA NITROGEN 17 mg/dl (7-18); BUN/CREATININE RATIO 15.6 (10-20); CALCIUM 9.4 mg/dl (8.5-10.1); CARBON DIOXIDE 30 mmol/L (21-32); CHLORIDE 102 mmol/L (98-107); CHOLESTEROL 194 mg/dl (0-200); CHOLESTEROL/HDL RATIO 4.4; GLUCOSE 96 mg/dl (70-99); HDL CHOLESTEROL 44 mg/dl; LDL CHOLESTEROL CALCULATED 121 mg/dl; POTASSIUM 4.7 mmol/L (3.5-5.1); SODIUM 137 mmol/L (136-145); TRIGLYCERIDES 145 mg/dl (0-150); VERY LOW DENSITY LIPOPROT CALC 29 mg/dl
== END | disposition home or self-care (01) ==
LOC: C.LABMFLN 10:48
PROVIDERS: ATTEND Family Medicine
DX: R73.09 Other abnormal glucose (principal); I10 Essential (primary) hypertension; E78.00 Pure hypercholesterolemia, unspecified

== ENCOUNTER → 2017-09-07 | Day surgery (SDC) | payer OTHER ==
[2017-08-30 08:58] VITALS: Ht 182.9 cm; Wt 115.9 kg
[~2017-09-07] VITALS: Ht 182.9 cm; Wt 115.9 kg
[~2017-09-07] MED LIST changes: +AMLO10TA2 PO; +CYM/30 PO; -HYDR-5688 PO; +LIDOCAINE HCL 2% 2 ML VIAL (20MG/ML) ONE; -LISI40TA PO; +LOSA1TAB38 PO; +LUTE20CA PO; +PROPOFOL IV EMULSION 10 MG/ML 20 ML VIAL IV ONE
--- NOTE | 2017-09-07 14:06 | Endo History and Physical ---
History & Physical Date of Service: Sep 07, 2017. Chief Complaint: History of polyps Referring Physician: Zackery History of Present Illness For colonoscopy Past Surgical History Hx Cardiac Surgery: No Hx Internal Defibrillator: No Hx Pacemaker: No Hx Abdominal Surgery: Yes (HERNIA REPAIR CHILD) Hx of Implantable Prosthesis: No Hx Post-Op Nausea and Vomiting: No Hx Cancer Surgery: Yes (SKIN EXCISONS) Hx Thoracic Surgery: Yes (LUMBAR SURG X2-96, 17) Hx Urinary Tract Surgery: Yes (TURP) Family History Colon CA, Esophogeal CA, Polyp, IBD Social History Smoking Status: Never Smoker Hx Substance Use: No Hx Alcohol Use: No Allergies Coded Allergies: Oxycodone (Verified Allergy, Unknown, Dilusions, 08/30/17) Reported by PT Venlafaxine (Unverified Allergy, Unknown, MADE JITTERY, 08/30/17) Current Medications Reported Home Medications Medications Dose Route/Sig Max Daily Dose Days Date Category Norvasc (Amlodipine Besylate) 10 Mg Tab 1 Tab PO QPM 30 08/30/17 Reported Lutein 20 Mg Cap 1 Tab PO QAM 08/30/17 Reported Cozaar (Losartan Potassium) 100 Mg Tab 1 Tab PO QAM 30 08/30/17 Reported Cymbalta (Duloxetine HCl) 30 Mg Cap 1 Cap PO QPM 30 08/30/17 Reported Protonix (Pantoprazole Sodium) 40 Mg Tab 40 Mg PO QAM 11/27/16 Reported Cymbalta (Duloxetine Hcl) 60 Mg Cap 30 Mg PO QAM 11/27/16 Reported Hctz (Hydrochlorothiazide) 25 Mg Tab 25 Mg PO QAM 09/19/14 Reported Ativan (Lorazepam) 0.5 Mg Tab 0.5 Mg PO QAM 09/19/14 Reported Vital Signs Weight (Kilograms): 115.91 Height (Feet): 6 Height (Inches): 0 Date Time Temp Pulse Resp B/P (MAP) Pulse Ox O2 Delivery O2 Flow Rate FiO2 09/07/17 13:24 36.6 84 20 149/97 (114) 97 Room Air Nasal Cannula Physical Exam General Appearance: WD/WN Respiratory/Chest: Respiratory effort: no dyspnea Cardiovascular: Heart Auscultation: RRR Abdomen: Inspection & Palpation: soft Assessment and Plan HX polyps for colonoscopy
--- NOTE | 2017-09-07 14:33 | Discharge Instructions ---
Endoscopy Patient Instructions Date / Procedure(s) Performed Sep 07, 2017. Colonoscopy Allergy Information Coded Allergies: Oxycodone (Verified Allergy, Unknown, Dilusions, 08/30/17) Reported by PT Venlafaxine (Unverified Allergy, Unknown, MADE JITTERY, 08/30/17) Discharge Date / Findings Sep 07, 2017. polyps, diverticulosis, hemorrhoids Medication Instructions Stopped Medication(s): Held daily meds except ativan and cozzar Restart Stopped Medication(s): resume meds Reported Home Medications Medications Dose Route/Sig Max Daily Dose Days Date Category Norvasc (Amlodipine Besylate) 10 Mg Tab 1 Tab PO QPM 30 08/30/17 Reported Lutein 20 Mg Cap 1 Tab PO QAM 08/30/17 Reported Cozaar (Losartan Potassium) 100 Mg Tab 1 Tab PO QAM 30 08/30/17 Reported Cymbalta (Duloxetine HCl) 30 Mg Cap 1 Cap PO QPM 30 08/30/17 Reported Protonix (Pantoprazole Sodium) 40 Mg Tab 40 Mg PO QAM 11/27/16 Reported Cymbalta (Duloxetine Hcl) 60 Mg Cap 30 Mg PO QAM 11/27/16 Reported Hctz (Hydrochlorothiazide) 25 Mg Tab 25 Mg PO QAM 09/19/14 Reported Ativan (Lorazepam) 0.5 Mg Tab 0.5 Mg PO QAM 09/19/14 Reported Provider Instructions Activity Restrictions - No exercising or heavy lifting for 24 hours. - Do not drink alcohol the day of the procedure. - Do not drive a car or operate machinery until the day after the procedure. - Do not make any important decisions or sign important papers in 24 hours after the procedure. Following Day: - Return to full activity which may include returning to work/school. Diet Start your diet with liquids and light foods (jello, soup, juice, toast). Then eat your usual diet if not nauseated. Treatment For Common After Affects For mild abdominal pain, bloating, or excessive gas: - Rest - Eat lightly - Lie on right side Follow-Up Information Follow-up with Zackery as scheduled Anesthesia Information What You Should Know You have had a procedure that required some medicine to reduce anxiety and discomfort. This treatment is called moderate sedation. After receiving the treatment, you may be sleepy, but you will be able to breathe on your own. The effects of the treatment may last for several hours. Follow these instructions along with Activity/Diet recommendations noted above: * Do NOT do anything where dizziness or clumsiness would be dangerous. * Rest quietly at home today, then you can be up and about tomorrow. * Have a responsible person stay with you the rest of today. * You may have had an I.V. today. If so, you may take the dressing off later today. Recommendations Call your doctor if: * Trouble breathing * Continuous vomiting for more than 24 hours * Temperature above 101 degrees * Severe abdominal pain or bloating * Pain not relieved by pain medicine ordered * There is increased drainage or redness from any incision * A large amount of rectal bleeding greater than 2-3 tablespoons. (If you had a polyp/s removed or have hemorrhoids, a small amount of blood - from the rectum is to be expected.) * You have any unanswered questions or concerns. IN THE EVENT OF A SERIOUS EMERGENCY, GO TO THE NEAREST EMERGENCY ROOM Your discharge instructions were prepared by provider Maurilio Whittington. Patient Instructions Signature Page Toan Cadena Patient (or Guardian) Signature/Date: I have read and understand the instructions given to me by my caregivers. Caregiver/RN/Doctor Signature/Date: The above-named patient and/or guardian has received patient instructions on this date. + Original Patient Signature Page (only) stays with chart. Please make copy for patient.
--- NOTE | 2017-09-07 14:37 | GI REPORT ---
Patient Name: Toan Cadena Procedure Date: 09/07/2017 2:05 PM Date of : 1950 Admit Type: Outpatient Age: 67 Gender: Male Attending MD: Maurilio Whittington MD Procedure: Colonoscopy Providers: Maurilio Whittington MD Referring MD: Tommy Vizcarra Indications: Personal history of colonic polyps Medicines: Propofol total dose 350 mg IV, Lidocaine 40 mg IV Complications: No immediate complications. Estimated Blood Loss: Estimated blood loss was minimal. Procedure: Pre-Anesthesia Assessment: - Prior to the procedure, a History and Physical was performed, and patient medications, allergies and sensitivities were reviewed. The patient's tolerance of previous anesthesia was reviewed. - The risks and benefits of the procedure and the sedation options and risks were discussed with the patient. All questions were answered and informed consent was obtained. After I obtained informed consent, the scope was passed under direct vision. Throughout the procedure, the patient's blood pressure, pulse, and oxygen saturations were monitored continuously. The On-site loaner was introduced through the anus and advanced to the cecum, identified by appendiceal orifice and ileocecal valve. The colonoscopy was performed without difficulty. The patient tolerated the procedure well. The quality of the bowel preparation was good. Findings: Non-bleeding internal hemorrhoids were found during endoscopy. The hemorrhoids were mild. A few diverticula were found in the sigmoid colon. A 3 mm polyp was found in the hepatic flexure. The polyp was sessile. The polyp was removed with a cold biopsy forceps. Resection and retrieval were complete. Estimated blood loss was minimal. A 5 mm polyp was found in the transverse colon. The polyp was sessile. The polyp was removed with a cold snare. Resection and retrieval were complete. Estimated blood loss was minimal. Impression: - Non-bleeding internal hemorrhoids. - Diverticulosis in the sigmoid colon. - One 3 mm polyp at the hepatic flexure, removed with a cold biopsy forceps. Resected and retrieved. - One 5 mm polyp in the transverse colon, removed with a cold snare. Resected and retrieved. Recommendation: - Discharge patient to home (ambulatory). - Continue present medications. - Await pathology results. - Return to primary care physician PRN. Maurilio Whittington M.D. Maurilio Whittington MD 09/07/2017 2:36:52 PM This report has been signed electronically. Note Initiated On: 09/07/2017 2:05 PM Number of Addenda: 0 I attest to the content of the Intraoperative Record and orders documented therein, exceptions below {[id number]}
[2017-09-07 15:12] VITALS: BP 154/99; PULSE 71; O2SAT 95
--- NOTE | 2017-09-07 16:09 | Anesthesiology Progress Note ---
Anesthesia Post Op Note Date & Time Sep 07, 2017 at 16:08 Vital Signs Pain Intensity: 3 Vital Signs Past 12 Hours Date Time Temp Pulse Resp B/P (MAP) Pulse Ox O2 Delivery O2 Flow Rate FiO2 09/07/17 15:12 71 20 154/99 (117) 95 Room Air Nasal Cannula 09/07/17 14:52 71 20 147/101 (116) 95 Room Air Nasal Cannula 09/07/17 14:37 77 20 129/81 (97) 95 Room Air Nasal Cannula 09/07/17 13:24 36.6 84 20 149/97 (114) 97 Room Air Nasal Cannula Notes Mental Status: alert / awake / arousable, participated in evaluation Pt Amnestic to Procedure: Yes Nausea / Vomiting: adequately controlled Pain: adequately controlled Airway Patency, RR, SpO2: stable & adequate BP & HR: stable & adequate Hydration State: stable & adequate Anesthetic Complications: no major complications apparent
== END | disposition home or self-care (01) ==
LOC: C.GI 12:48
PROVIDERS: ATTEND Internal Medicine Gastroenterology
DX: Z12.11 Encounter for screening for malignant neoplasm of colon (principal); D12.3 Benign neoplasm of transverse colon; K63.5 Polyp of colon; Z86.010 Personal history of colon polyps; Z80.0 Family history of malignant neoplasm of digestive organs; K64.8 Other hemorrhoids; K57.30 Diverticulosis of large intestine without perforation or abscess without bleeding; I10 Essential (primary) hypertension; Z88.5 Allergy status to narcotic agent; Z86.19 Personal history of other infectious and parasitic diseases; M19.90 Unspecified osteoarthritis, unspecified site; E66.9 Obesity, unspecified; F32.9 Major depressive disorder, single episode, unspecified